=== PATIENT | male | born 1970 | race Caucasian/White ===

== ENCOUNTER 2016-03-11 05:27 | Day surgery (SDC) | payer OTHER, BC ==
[2016-03-10 08:36] VITALS: BMI 27.2
[~2016-03-11 05:27] MED LIST: ceFAZolin SODIUM 1 GM VIAL IVPB ONE
--- NOTE | 2016-03-11 11:36 | HP ---
[facility]ellite [facility] - Chief Complaint Chief Complaint: left elbow pain - Past Medical History Allergies/Adverse Reactions: Allergies Allergy/AdvReac Type Severity Reaction Status Date / Time No Known Allergies Allergy Verified 03/11/16 10:34 - Current Medications Current Medications: Medication Instructions Recorded Multivit-Minerals/Folic Acid 200 mcg PO DAILY 03/10/16 [Adult Multi Gummies] Aspirin Coated [Ecotrin -] 81 mg PO DAILY 03/11/16 Glucosa Arango 2Kcl/Chondroitin Arango 1 each PO DAILY 03/11/16 [Glucosamine & Chondroitin Cap] Hydrocodone/Acetaminophen 1 each PO Q6H #40 tablet MDD 4 03/11/16 [Hydrocodon-Acetaminoph 7.5-325] Satellite Physical Exam - Physical Examination Vital Signs: Vital Signs Period Temp Pulse Resp BP Sys/Gardner Pulse Ox Last 24 Hr 98.0 F 59 20 120/80 98 General Appearance: Well Nourished, Well Developed, Alert & Oriented x3 ENT: Clear Lung: Normal air movement Heart: Regular rate & rhythm Extremities: Other (left elbow- + ttp, decr rom, nvi MRI + partial ecrb tear) Neurological: Intact, Alert, Oriented Satellite Impression/Plan - Impression/Plan Impression: left lateral epicondyltis, ecrb partial tear Operative Procedure: left elbow lateral epicondylectomy, ecrb repair Date to be Performed: 03/11/16
[2016-03-11] MEDS ORDERED: ROPIVACAINE HCL 0.5% 30ML VIAL ONE (12:00)
[2016-03-11] MEDS ORDERED: MIDAZOLAM HCL 2 MG/2 ML SINGLE DOSE VIAL ONE ×2 (12:01)
[2016-03-11] MEDS ORDERED: ceFAZolin SODIUM 1 GM VIAL IVPB ONE (13:30)
[2016-03-11] MEDS ORDERED: PROPOFOL 20 ML ONE ×4 (13:32→13:43)
[2016-03-11] MEDS ORDERED: ONDANSETRON 4 MG/2 ML VIAL IVPUSH PRN (14:08)
[2016-03-11] MEDS ORDERED: oxyCODONE HCL 5 MG TABLET PO PRN (14:08)
[2016-03-11] MEDS ORDERED: LIDOCAINE HCL 2% 100 MG/5 ML DISP.SYRIN ONE (14:12)
[2016-03-11] MEDS ORDERED: DEXAMETHASONE SOD PHOSPHATE 4 MG/1 ML VIAL ONE ×2 (14:12→14:13)
[2016-03-11] MEDS ORDERED: LACTATED RINGERS SOLUTION 1,000 ML IV SCH (14:15)
--- NOTE | 2016-03-11 14:44 | OP ---
Operative Note - Note: Operative Date: 03/11/16 ([facility]) Pre-Operative Diagnosis: left elbow lateral epicondylitis, ECRB tear Operation: left lateral epicondylectomy, ECRB repair Post-Operative Diagnosis: Same as Pre-op Surgeon: Duglas Ford Unarmed Security Officer: Neftali Michael Anesthesiologist/TURF KEEPER: Nathen Patterson Jr. Anesthesia: General, Local Specimens Removed: tenosynovium Estimated Blood Loss (mls): 0 (tourinquet) Operative Report Dictated: Yes
[2016-03-11] MEDS ORDERED: ACETAMINOPHEN INJECTION 100 ML IVPB ONE (15:12)
[2016-03-11] MEDS ORDERED: ACETAMINOPHEN 1000 MG/100 ML VIAL (NON FORMULARY) IVPB ONE (15:16)
[2016-03-11 15:45] VITALS: TEMP 98
[2016-03-11 16:51] VITALS: BP 120/70; PULSE 60
--- NOTE | 2016-03-11 19:40 | OP ---
DATE OF OPERATION: 03/11/2016 INDICATION: This patient is a 45-year-old male who presented to the operating room for a condylectomy. We discussed the potential risks, complications, alternatives, benefits to surgery versus nonsurgical treatment, and the patient elected to undergo this procedure. SURGEON: Duglas Ford M.D. AXMINSTER RUG SETTER: Ethel Drew NAME OF PROCEDURE: epicondylectomy, repair of extensor carpi radialis brevis tendon. PROCEDURE: The patient was brought to the operating room, peripheral IV placed, IV sedation given. 1 g of IV Ancef was given and a left interscalene block was performed. The left upper extremity was prepped and draped in a sterile fashion. An LMA was placed. He was placed into a sloppy lateral position with a bump underneath his left thorax and hemipelvis. The left upper extremity was prepped and draped in the sterile fashion, elevated, exsanguinated with an Esmarch bandage and tourniquet inflated to 250 mm of mercury. A curvilinear incision was marked out of lateral upper condyle. An incision was made with a number 15 scalpel blade. Subcutaneous hemostasis was achieved with a bipolar cautery. Dissection down to the lateral epicondyle. Self retaining Weitlaner retractors were placed into the wound. A fresh number 15 scalpel was utilized to make 3 slits longitudinally, not cutting the fibers of the ECRB through the ECRB down to the lateral epicondyle. In a sequential fashion, I put small self retaining retractors into each of these slits, identified and removed chronic inflammatory tissue, used the curet to stimulate healing response on the normal tendon as well as mildly decorticate the lateral epicondyle, and then I made multiple drill holes with a 0.362 K-wire through lateral epicondyle at the base of the slit; as mentioned, this was done at all 3 splits. The endoscope was irrigated and washed out. I then identified the ECRB tear which was in the central portion, closed that, as well as the 3 slits with 2-0 Vicryl sutures. It all came together quite nicely. Deep dermal layer was closed with 4-0 undyed Vicryl. Final skin reapproximation was done with running subcuticular 4-0 Biosyn. The area was then washed and dried and covered with Steri-Strips, 4x4 gauze, Webril, and fixed posterior Ortho-Glass splint was applied, wrapped with 4 inch and 6 inch Dave bandage, tourniquet was taken down after total tourniquet time of 35 minutes. There were no complications during the case. Patient tolerated the procedure quite well and brought to the regular recovery room in stable condition. Meagan [id number]
--- NOTE | 2016-03-13 11:35 | PATH ---
Surgical Pathology Report Patient Name: ASHLEY RODRIGUEZ [facility] [place]. Rec. #: [id number] /Age/Gender: 1970 (Age: 45) / M Account: [id number] Location: [facility] SURGICAL Taken: 03/11/2016 Received: 03/12/2016 Reported: 03/13/2016 Physicians: Duglas Ford M.D. Specimen(s) Received EPICONDYLE TISSUE Clinical History Epicondylitis Left elbow lateral epicondylectomy Final Diagnosis SOFT TISSUE, LEFT ELBOW, EXCISION: PORTIONS OF SYNOVIUM, CARTILAGE, AND BONE. Electronically Signed Tae Frey M.D. Gross Description Received in formalin, labeled "epicondyle tissue," is a 1.3 x 1.1 x 0.2 cm aggregate of hayes soft tissue fragments. The specimen is submitted in toto in one cassette. 03/12/201603/12/2016
== END 2016-03-11 16:45 | disposition home or self-care (01) ==
LOC: JASU-SURG 05:27
PROVIDERS: ATTEND Orthopaedic Surgery
PROC: 0LQ60ZZ Repair Left Lower Arm and Wrist Tendon, Open Approach (ICD-10-PCS; principal; 2016-03-11 12:00)
DX: M77.12 Lateral epicondylitis, left elbow (principal)
CPT/HCPCS: 88304-TC; 94760